=== PATIENT | male | born 1990 | race African-American/Black ===

== ENCOUNTER 2020-08-05 17:48 | Emergency (ER) | payer OTHER ==
[~2020-08-05] VITALS: Ht 177.8 cm; Wt 64.5 kg
[2020-08-05 19:50] VITALS: BP 132/70
== END 2020-08-05 19:58 | disposition home or self-care (01) ==
LOC: EMS 17:48
DX: Z00.00 Encounter for general adult medical examination without abnormal findings (principal)
CPT/HCPCS: 99281; Z7502